=== PATIENT | male | born 1955 | race Two or more races ===

== ENCOUNTER 2016-11-06 19:36 | Emergency (ER) | payer MEDICAID ==
[~2016-11-06] VITALS: Ht 175.3 cm; Wt 102.1 kg
[2016-11-06 19:58] VITALS: BP 107/66
[2016-11-06] MEDS ORDERED: SODIUM CHLORIDE 0.9% 1,000 ML IV ONE (22:26)
== END 2016-11-07 00:38 | disposition home or self-care (01) ==
LOC: EDBD 19:36 → ER 19:46
DX: F10.129 Alcohol abuse with intoxication, unspecified (principal); R55 Syncope and collapse; R42 Dizziness and giddiness; E11.9 Type 2 diabetes mellitus without complications; I10 Essential (primary) hypertension
CPT/HCPCS: 70450; 93005; 96360; 96361; 99285; J7030